=== PATIENT | female | born 1990 | race Caucasian/White ===

== ENCOUNTER 2018-01-28 11:38 | Inpatient (IN) | payer OTHER ==
[2018-01-28] MEDS ORDERED: LACTATED RINGERS 1,000 ML ONE (12:45)
[2018-01-28] MEDS ORDERED: PITOCin/NS 20 UNIT/1000ML DRIP 20,000 MILLIUNITS/1,000 ML BAG IV ONE (12:46)
--- NOTE | 2018-01-28 13:00 | History and Physical Report ---
History of Present Illness Date of examination: 01/28/18 Date of admission: 01/28/18 12:38 Chief complaint: Contractions History of present illness: 28yo G 3 P 2 0 0 2 at 39 weeks 4 days here with c/o painful ctxs since this AM. She reports positive movements but denies vaginal bleeding or LOF. She is a [facility] patient. No records available. She denies any problems related to her . Her past medical history is unremarkable. GBS is unknown. Past History Past Medical History: no pertinent history Past Surgical History: no surgical history Family/Genetic History: none Social history: , lives with family, full code - Obstetrical History Expected Date of Delivery: 01/31/18 Actual Gestation: 39 Week(s) 4 Day(s) : 3 Para: 2 Hx # Term Pregnancies: 0 Number of Pregnancies: 0 Spontaneous Abortions: 0 Induced : 0 Number of Living Children: 2 Medications and Allergies Allergies Allergy/AdvReac Type Severity Reaction Status Date / Time No Known Allergies Allergy Unverified 01/28/18 13:01 Home Medications Medication Instructions Recorded Confirmed Last Taken Type No Known Home Medications [No 01/28/18 01/28/18 Unknown History Reported Home Medications] Review of Systems All systems: negative - Vital Signs Vital signs: Vital Signs Pulse Pulse Ox 96 H 98 01/28/18 12:02 01/28/18 12:02 Temp Pulse Resp BP Pulse Ox 79 115/76 98 01/28/18 12:59 01/28/18 12:59 01/28/18 12:59 - Obstetrical FHR: auscultation normal, category 1 FHR comments: baseline 130, moderate variability, + accels, no decels Uterine Contraction Monitor Mode: External Cervical Dilatation: 8 (per RN) Cervical Effacement Percentage: 90 (per RN) station: 0 (per RN) Uterine Contraction Frequency (min): 2-3 Uterine Contraction Pattern: Regular Results Result Diagrams: 01/28/18 12:35 All other labs normal. Assessment and Plan - Patient Problems (1) 39 weeks gestation of Current Visit: Yes Status: Acute (2) Active labor at term Current Visit: Yes Status: Acute Plan to address problem: Admit to L&D with routine labor orders Start ampicillin for GBS prophylaxis Anticipate imminent vaginal delivery
[2018-01-28] MEDS ORDERED: XYLOCAINE 2% INFILTRATI ONE (13:01)
[2018-01-28] MEDS ORDERED: SUBLIMAZE IV PRN (13:01)
[2018-01-28] MEDS ORDERED: BRETHINE SUB-Q PRN (13:01)
[2018-01-28] MEDS ORDERED: MINERAL OIL PO PRN (13:01)
[2018-01-28] MEDS ORDERED: BRETHINE IVP PRN (13:01)
[2018-01-28 13:25] LABS: Hematocrit 38.5 % (30.3-42.9); Hemoglobin 13.7 gm/dl (10.1-14.3); Mean Corpuscular HGB Conc 36 % (30-34); Mean Corpuscular Hemoglobin 33 pg (28-32); Mean Corpuscular Volume 94 fl (79-97); Platelet Count 232 K/mm3 (140-440); Red Cell Distribution Width 13.1 % (13.2-15.2)
--- NOTE | 2018-01-28 13:46 | Procedure Note ---
OB Delivery Note - Delivery Date of Delivery: 01/28/18 Surgeon: THONY SANCHEZ (JUAN J) Estimated blood loss: 200cc - Vaginal Delivery presentation: vertex Delivery position: OA Intrapartum events: none Delivery induction: none Delivery monitor: none Route of delivery: Delivery placenta: spontaneous (13:38) Delivery cord: 3 umbilical vessels Episiotomy: none Delivery laceration: none Anesthesia: none Delivery comments: of a viable term 6 lbs 13 oz female on 01/28/18 @ 13:32. Baby placed skin-to -skin on maternal abdomen. After 3 mins, umbilical cord double-clamped by JUAN J Sanchez and cut by the patient. Spontanoeus delivery of placenta, Roberta- side presenting at 13:38. Small lochia present. Fundal massage and IV Pitocin bolus initiated. Fundus F/ML/U-1. Perineum intact. No lacerations present. Placenta intact; was discarded. Mom and baby in stable condition. - Infant A at 1 minute: 8 at 5 minutes: 9 Infant Gender: Female (6 lbs 13 oz (3087 gm) 19 in)
[2018-01-28] MEDS ORDERED: LACTATED RINGERS 1,000 ML IV SCH (14:00)
[2018-01-28] MEDS ORDERED: PITOCin/NS 20 UNIT/1000ML DRIP 20 UNITS/1,000 ML BAG IV SCH (14:00)
[2018-01-28] MEDS ORDERED: TYLENOL PO PRN (15:18)
[2018-01-28] MEDS ORDERED: PHENERGAN PO PRN (15:18)
[2018-01-28] MEDS ORDERED: TUCKS PAD TP PRN (15:18)
[2018-01-28] MEDS ORDERED: MILK OF MAGNESIA PO PRN (15:18)
[2018-01-28] MEDS ORDERED: BENADRYL PO PRN (15:18)
[2018-01-28] MEDS ORDERED: ZOFRAN IV PRN (15:18)
[2018-01-28] MEDS ORDERED: PHENERGAN PR PRN (15:18)
[2018-01-28] MEDS ORDERED: DULCOLAX PR PRN (15:18)
[2018-01-28] MEDS ORDERED: LANSINOH TP PRN (15:18)
[2018-01-28] MEDS ORDERED: SODIUM CHLORIDE FLUSH SYRINGE 10 ML IV SCH (16:00)
[2018-01-28] MEDS ORDERED: AMPICILLIN/NS 1 GM/50 ML 1 GM/50 ML BAG IV SCH (17:03)
[2018-01-28] MEDS: MOTRIN PO SCH (17:25)
[2018-01-28] MEDS: NORCO 5/325 PO PRN (17:25)
[2018-01-29 03:46] LABS: Hematocrit 34.9 % (30.3-42.9); Hemoglobin 11.9 gm/dl (10.1-14.3)
[2018-01-29] MEDS: MOTRIN PO SCH ×4 (05:36→18:25)
--- NOTE | 2018-01-29 10:17 | Progress Note ---
Assessment and Plan A: PPD#1 s/p Stable Breast/Bottlefeeding GBS unknown P: Routine PP orders Anticipate discharge 24-48 hrs Subjective - Subjective Date of service: 01/29/18 Principal diagnosis: PPD#1 s/p Interval history: See delivery note Patient reports: appetite normal, voiding normally, pain well controlled, flatus , ambulating normally, no bowel movement : doing well (both breast/bottle) Objective - Vital Signs Latest vital signs: Vital Signs Temp Pulse Resp BP BP Pulse Ox 01/29/18 08:18 97.6 F 67 18 96/61 100 01/29/18 06:36 18 01/29/18 05:36 18 01/29/18 00:45 97.9 F 68 18 105/66 96 01/29/18 00:00 18 01/28/18 20:33 97.8 F 70 18 103/65 93 01/28/18 16:39 97.9 F 62 18 106/61 01/28/18 14:43 61 112/75 01/28/18 14:28 61 111/73 01/28/18 14:13 75 112/71 01/28/18 13:58 89 132/77 01/28/18 13:44 92 H 144/69 01/28/18 13:29 102 H 100 01/28/18 13:28 104 H 127/79 01/28/18 13:24 95 H 100 01/28/18 13:23 95 H 91 01/28/18 13:19 101 H 100 01/28/18 13:14 100 H 100 01/28/18 13:13 82 122/80 90 01/28/18 13:09 97 H 100 01/28/18 13:04 76 81 L 01/28/18 12:59 79 115/76 98 01/28/18 12:54 86 99 01/28/18 12:50 97.7 F 18 01/28/18 12:49 91 H 100 01/28/18 12:44 95 H 99 01/28/18 12:43 87 110/69 01/28/18 12:32 96 H 98 01/28/18 12:27 81 98 01/28/18 12:22 86 98 01/28/18 12:17 94 H 98 01/28/18 12:12 96 H 97 01/28/18 12:07 92 H 99 01/28/18 12:03 74 106/71 01/28/18 12:02 96 H 98 Intake and Output 01/28/18 01/29/18 01/29/18 23:59 07:59 15:59 Intake Total 120 240 Balance 120 240 Intake: Oral 120 120 Intake, Free Water 120 Other: Total, Intake Amount 120 120 # Voids Void 1 1 - Exam Breasts: Present: normal, Cardiovascular: Present: Regular rate, Normal S1, Normal S2, No murmurs Lungs: Present: Clear to auscultation, Normal air movement Abdomen: Present: normal appearance, soft, normal bowel sounds. Absent: distention Vulva: both: normal Uterus: Present: firm, fundal height below umbilicus (-1) Extremities: Present: normal Deep Tendon Reflex Grade: Normal +2 - Labs Labs: Abnormal lab results 01/28/18 Range/Units 12:35 MCH 33 H (28-32) pg MCHC 36 H (30-34) % RDW 13.1 L (13.2-15.2) %
--- NOTE | 2018-01-29 10:18 | Discharge Summary ---
Providers - Providers Date of Admission: 01/28/18 12:38 Date of discharge: 01/30/18 Attending physician: LIZETTE MEIER MD Primary care physician: LIZETTE MEIER MD Hospitalization Reason for admission: active labor, IUP at term Delivery: Procedure details: See delivery note Episiotomy: none Laceration: none Other procedures: none complications: none Discharge diagnosis: IUP at term delivered [place] baby: female Condition at discharge: Good Disposition: DC-01 TO HOME OR SELFCARE Plan - Provider Discharge Summary Activity: routine, no sex for 6 weeks, no heavy lifting 4 weeks, no strenuous exercise Diet: routine Instructions: routine Additional instructions: [] Smoking cessation referral if applicable(refer to patient education folder for contact #) [] Refer to [facility] Booklet Call your doctor immediately for: * Fever > 100.5 * Heavy vaginal bleeding ( >1 pad per hour) * Severe persistent headache * Shortness of breath * Reddened, hot, painful area to leg or breast * Drainage or odor from incision. * Keep incision clean and dry at all times and follow doctor's instructions regarding bathing/showering - Follow up plan Follow up: LIZETTE MEIER MD [Primary Care Provider] - 6 Weeks
[2018-01-29] MEDS: PRENATAL VITAMIN PO SCH (10:49)
[2018-01-29] MEDS: NORCO 5/325 PO PRN (10:51)
[2018-01-30] MEDS: MOTRIN PO SCH ×3 (00:35→11:17)
[2018-01-30] MEDS: PRENATAL VITAMIN PO SCH (11:17)
[2018-01-30 15:25] VITALS: BP 95/58
== END 2018-01-30 14:20 | disposition home or self-care (01) | DRG 775 ==
LOC: TRG 11:38 → LD 12:38 → OB 17:18
PROVIDERS: ADMIT Obstetrics & Gynecology; ATTEND Obstetrics & Gynecology
PROC: 10E0XZZ Delivery of Products of Conception, External Approach (ICD-10-PCS; principal; 2018-01-28)
DX: O80 Encounter for full-term uncomplicated delivery (principal); Z3A.39 39 weeks gestation of pregnancy; Z37.0 Single live birth
CPT/HCPCS: 36415; 85014; 85018; 85027; 86592; 86850; 86900; 86901; 99211; A6250; G0463; J2590; J7120

== ENCOUNTER 2020-11-13 12:05 | Inpatient (IN) | payer MEDICAID, OTHER ==
[2020-11-13] MEDS ORDERED: CARBOPROST TROMETHAMINE 250 MCG/1 ML INJ IM PRN (15:53)
[2020-11-13] MEDS ORDERED: BUTORPHANOL 2 MG/1 ML INJ IV PRN (15:53)
[2020-11-13] MEDS ORDERED: TERBUTALINE 1 MG/1 ML INJ SUB-Q PRN (15:53)
[2020-11-13] MEDS ORDERED: NALOXONE 0.4 MG/1 ML INJ IV PRN (15:53)
[2020-11-13] MEDS ORDERED: fentaNYL 100 MCG/2 ML INJ IV PRN (15:53)
[2020-11-13] MEDS ORDERED: METHYLERGONOVINE MALEATE 0.2 MG/ML VIAL IM PRN (15:53)
[2020-11-13] MEDS ORDERED: ONDANSETRON 4 MG/2 ML INJ IV PRN ×3 (15:53→22:43)
[2020-11-13] MEDS ORDERED: MINERAL OIL 30 ML ORAL LIQD PO PRN (15:53)
[2020-11-13] MEDS ORDERED: ePHEDrine SULFATE 50 MG/1 ML INJ IV PRN (15:53)
[2020-11-13] MEDS ORDERED: OXYTOCIN 10 UNIT/1 ML INJ IM PRN (15:53)
[2020-11-13] MEDS ORDERED: OXYTOCIN DRIP 30 UNITS/500 ML BAG IV SCH ×3 (16:00→22:43)
[2020-11-13] MEDS ORDERED: LACTATED RINGERS 1,000 ML IV SCH (16:00)
--- NOTE | 2020-11-13 16:52 | Ultrasound Report ---
ULTRASOUND OBSTETRIC LIMITED ULTRASOUND BIOPHYSICAL PROFILE INDICATION / CLINICAL INFORMATION: WELL BEING BPP/RO. COMPARISON: None available. FINDINGS: BREATHING MOVEMENT = 2 GROSS BODY MOVEMENT = 2 TONE = 2 QUALITATIVE AMNIOTIC FLUID VOLUME = 2 TOTAL BIOPHYSICAL SCORE = 8/8 HEART RATE (beats per minute): 143 AMNIOTIC FLUID INDEX (cm) = 8.9 (normal = 7-24 cm) PRESENTATION: Cephalic. ADDITIONAL FINDINGS: None. IMPRESSION: 1. Biophysical Score = 8/8 2. RO 8.9 cm Signer Name: Harley Arrieta MD Signed: 11/13/2020 4:48 PM Workstation Name: [id number]
[2020-11-13] MEDS ORDERED: miSOPROStol 25 MCG TAB VG ONE (17:00)
[2020-11-13] MEDS ORDERED: LIDOCAINE (2%) 20 MG/1 ML VIAL 20 ML MDV INFILTRATI ONE (17:00)
[2020-11-13 17:15] LABS: Hematocrit 32.6 % (30.3-42.9); Hemoglobin 11.3 gm/dl (10.1-14.3); Mean Corpuscular HGB Conc 35 % (30-34); Mean Corpuscular Volume 91 fl (79-97); Platelet Count 202 K/mm3 (140-440); Red Blood Count 3.57 M/mm3 (3.65-5.03); Red Cell Distribution Width 13.8 % (13.2-15.2)
--- NOTE | 2020-11-13 19:09 | History and Physical Report ---
History of Present Illness Date of examination: 11/13/20 Chief complaint: pt here with c/o ctx History of present illness: at 38.5 by LMP c/w U/S. Pt c/o ctx, denies leakage of fluid or vaginal bleeding or headache. pt admits to having heavy vaginal bleeding with all her vag deliveries and extensive vaginal laceration with her first 2 children, 7- 8lbs. care at [facility] and records with Rh positive, Hep BsAg neg, RPR neg, HIV neg and Rubella immune and GBS negative. Past History Past Medical History: other (PPH with all her vag deliveries but no blood transfusion needed) Past Surgical History: no surgical history - Obstetrical History Expected Date of Delivery: 11/22/20 Actual Gestation: 38 Week(s) 5 Day(s) : 4 Hx # Term Pregnancies: 3 Number of Living Children: 3 Medications and Allergies Allergies Allergy/AdvReac Type Severity Reaction Status Date / Time No Known Allergies Allergy Unverified 01/28/18 13:01 Home Medications Medication Instructions Recorded Confirmed Last Taken Type No Known Home Medications [No 01/28/18 01/28/18 Unknown History Reported Home Medications] Active Meds: Active Medications Butorphanol Tartrate (Butorphanol 2 Mg/1 Ml Inj) 1 mg IV Q2H PRN PRN Reason: Pain, Moderate(4-6) LABOR PAIN Carboprost Tromethamine (Carboprost Tromethamine 250 Mcg/1 Ml Inj) 250 mcg IM ONCE PRN PRN Reason: Uterine Bleeding Ephedrine Sulfate (Ephedrine Sulfate 50 Mg/1 Ml Inj) 10 mg IV Q2M PRN PRN Reason: Hypotension Fentanyl (Fentanyl 100 Mcg/2 Ml Inj) 100 mcg IV Q2H PRN PRN Reason: Pain,Severe (7-10) LABOR PAIN Oxytocin/Sodium Chloride (Pitocin/Ns 30 Unit/500ml) 30 units in 500 mls @ 2 mls/hr IV TITR JOSE ANTONIO; Protocol Lactated Ringer's (Lactated Ringers) 1,000 mls @ 125 mls/hr IV DIRECT JOSE ANTONIO Oxytocin/Sodium Chloride (Pitocin/Ns 30 Unit/500ml) 30 units in 500 mls @ 40 mls/hr IV TITR JOSE ANTONIO; Protocol Methylergonovine Maleate (Methylergonovine Maleate 0.2 Mg/Ml Vial) 0.2 mg IM ONCE PRN PRN Reason: Uterine Bleeding Mineral Oil (Mineral Oil 30 Ml Oral Liqd) 30 ml PO QHS PRN PRN Reason: Constipation Naloxone HCl (Naloxone 0.4 Mg/1 Ml Inj) 0.1 mg IV Q2MIN PRN PRN Reason: Res Rate </= 8 or 02 SAT < 92% Ondansetron HCl (Ondansetron 4 Mg/2 Ml Inj) 4 mg IV Q8H PRN PRN Reason: Nausea And Vomiting Oxytocin (Oxytocin 10 Unit/1 Ml Inj) 10 unit IM ONCE PRN PRN Reason: Uterine Bleeding Terbutaline Sulfate (Terbutaline 1 Mg/1 Ml Inj) 0.25 mg SUB-Q ONCE PRN PRN Reason: Hyperstimulation/Hypertonicity Review of Systems All systems: negative (ctx) - Vital Signs Vital signs: Vital Signs Pulse Pulse Ox 123 H 98 11/13/20 12:30 11/13/20 12:30 Temp Pulse Resp BP Pulse Ox 98.6 F 106 H 18 104/61 99 11/13/20 18:18 11/13/20 19:03 11/13/20 12:40 11/13/20 17:15 11/13/20 19:03 - Physical Exam Breasts: Positive: normal Cardiovascular: Regular rate Genitourinary (Female): Positive: normal external genitalia Vagina: Positive: normal moisture Extremities: Positive: normal - Obstetrical FHR: category 1 Uterine Contraction Monitor Mode: External Cervical Dilatation: 6 (prev 5cm in triage and then changed to 6cm by triage nurse hence admission. Pelvic now 8cm with moderate blood at vagina. ) Cervical Effacement Percentage: 90 station: -1 Uterine Contraction Pattern: Irregular Uterine Contraction Intensity: Mild Results Result Diagrams: 11/13/20 17:01 Abnormal lab results 11/13/20 Range/Units 17:01 RBC 3.57 L (3.65-5.03) M/mm3 MCHC 35 H (30-34) % All other labs normal. Assessment and Plan multiparous in active labor, now with moderate vag bleeding and BPP earlier 01/23 and cephalic 1. Admit to labor and delivery 2. AROM done and same with copious amount of clear fluid. 3. IUPC and FSE placed 4. Will augment labor with pitocin 5. Pt declines epidural. May have IV pain med when desired Expect
[2020-11-13] MEDS ORDERED: miSOPROStol 200 MCG TAB PR ONE (19:48)
[2020-11-13] MEDS ORDERED: miSOPROStol 200 MCG TAB ONE (19:48)
--- NOTE | 2020-11-13 20:29 | Procedure Note ---
OB Delivery Note - Delivery Date of Delivery: 11/13/20 Surgeon: MART LUGO Estimated blood loss: 300cc - Vaginal Delivery position: OA Intrapartum events: none Delivery induction: none Delivery augmentation: pitocin Delivery monitor: external FHT Route of delivery: Delivery placenta: spontaneous Episiotomy: none Delivery laceration: 1st degree (x2 to vagina) Delivery repair: chromic Anesthesia: local Delivery comments: SAVD uncomplicated of viable female infant, placenta delivered spontaneously and complete. Sustained 2 first degree lacerations and same repaired with 2-0 chromic interrupted suture. Bimanual done and pt given cytotec 1000mcg per rectum as prophylaxis with previous PPH x3 history. Mom and baby stable. - Infant A at 1 minute: 8 at 5 minutes: 9 (2986g)
[2020-11-13] MEDS ORDERED: oxyCODONE /ACETAMINOPHEN 5-325MG TAB PO ONE (20:43)
[2020-11-13] MEDS ORDERED: LANOLIN/ZINC/DIMETHICONE (LANSINOH) 7 GM TP PRN ×2 (22:00→22:43)
[2020-11-13] MEDS ORDERED: MAGNESIUM HYDROXIDE (MOM) ORAL LIQD UDC PO PRN ×2 (22:00→22:43)
[2020-11-13] MEDS ORDERED: PROMETHAZINE 25 MG TAB PO PRN ×2 (22:00→22:43)
[2020-11-13] MEDS ORDERED: PROMETHAZINE 25 MG RECT SUPP PR PRN ×2 (22:00→22:43)
[2020-11-13] MEDS ORDERED: diphenhydrAMINE 25 MG CAP PO PRN ×2 (22:00→22:43)
[2020-11-13] MEDS ORDERED: WITCH HAZEL/ GLYCERIN PAD TP PRN ×2 (22:00→22:43)
[2020-11-13] MEDS ORDERED: IBUPROFEN 600 MG TAB PO SCH (22:43)
[2020-11-13] MEDS: IBUPROFEN 600 MG TAB PO SCH (23:14)
[2020-11-14] MEDS: IBUPROFEN 600 MG TAB PO SCH ×3 (06:12→23:29)
[2020-11-14 09:12] LABS: Hematocrit 33.1 % (30.3-42.9); Hemoglobin 10.8 gm/dl (10.1-14.3)
[2020-11-14] MEDS: oxyCODONE /ACETAMINOPHEN 5-325MG TAB PO PRN ×2 (10:03→17:04)
[2020-11-14] MEDS: PRENATAL VIT27-FE FUMARATE-FOLIC ACID VIT TAB PO SCH (10:03)
[2020-11-14 10:21] LABS: Hematocrit 31.3 % (30.3-42.9); Hemoglobin 10.7 gm/dl (10.1-14.3)
--- NOTE | 2020-11-14 11:45 | Progress Note ---
Assessment and Plan A: day 1 S/P . Anemia. P: Supplement with iron. Continue routine care. Anticipate discharge home tomorrow if patient continues to do well. Subjective - Subjective Date of service: 11/14/20 Principal diagnosis: day 1 S/P Patient reports: appetite normal, voiding normally, pain well controlled, flatus, ambulating normally, no dizzy ambulation, no nauseated : doing well Objective - Vital Signs Latest vital signs: Vital Signs Temp Pulse Resp BP BP Pulse Ox 11/14/20 08:00 98.1 F 77 16 99/63 96 11/14/20 07:10 18 11/14/20 06:12 18 11/14/20 05:04 98.2 F 72 20 101/61 98 11/14/20 00:03 18 11/13/20 23:14 18 11/13/20 22:08 99.7 F H 85 18 112/63 98 11/13/20 20:32 89 110/58 11/13/20 20:18 100 H 95 11/13/20 20:13 98 H 99 11/13/20 20:08 111 H 99 11/13/20 20:03 87 96 11/13/20 19:58 94 H 100 11/13/20 19:53 105 H 98 11/13/20 19:48 104 H 97 11/13/20 19:43 98 H 98 11/13/20 19:38 107 H 97 11/13/20 19:33 96 H 99 11/13/20 19:28 97 H 99 11/13/20 19:23 97 H 97 11/13/20 19:18 92 H 99 11/13/20 19:13 98.5 F 109 H 20 99 11/13/20 19:08 93 H 99 11/13/20 19:03 106 H 99 11/13/20 18:58 101 H 99 11/13/20 18:53 103 H 99 11/13/20 18:48 89 99 11/13/20 18:43 111 H 99 11/13/20 18:38 98 H 99 11/13/20 18:33 102 H 100 11/13/20 18:28 113 H 100 11/13/20 18:23 87 100 11/13/20 18:18 98.6 F 94 H 98 11/13/20 18:13 96 H 99 11/13/20 18:08 100 H 99 11/13/20 18:03 102 H 99 11/13/20 17:58 88 99 11/13/20 17:53 104 H 99 11/13/20 17:48 99 H 100 11/13/20 17:43 105 H 100 11/13/20 17:38 96 H 99 11/13/20 17:33 96 H 99 11/13/20 17:28 107 H 99 11/13/20 17:23 115 H 99 11/13/20 17:18 108 H 99 11/13/20 17:15 100 H 104/61 11/13/20 17:13 105 H 100 11/13/20 17:08 105 H 99 11/13/20 17:03 104 H 99 11/13/20 16:58 106 H 100 11/13/20 16:52 97 H 98 11/13/20 16:47 106 H 98 11/13/20 16:42 110 H 98 11/13/20 16:37 100 H 99 11/13/20 15:44 89 87 11/13/20 15:41 115 H 99 11/13/20 15:36 99 H 100 11/13/20 15:31 98 H 99 11/13/20 15:26 103 H 100 11/13/20 15:21 104 H 100 11/13/20 15:20 100 H 109/68 11/13/20 15:16 101 H 99 11/13/20 15:11 103 H 100 11/13/20 15:06 109 H 100 11/13/20 15:00 108 H 99 11/13/20 14:55 99 H 99 11/13/20 14:50 107 H 101/59 99 11/13/20 14:45 100 H 99 11/13/20 14:40 93 H 99 11/13/20 14:35 98 H 100 05 14:30 98 H 99 11/13/20 14:25 105 H 100 05 14:21 103 H 95/58 11/13/20 14:20 103 H 100 11/13/20 14:15 98 H 100 11/13/20 14:10 98 H 100 11/13/20 14:05 102 H 100 11/13/20 14:00 100 H 99 11/13/20 13:55 99 H 99 11/13/20 13:50 107 H 98/70 99 11/13/20 13:45 101 H 99 11/13/20 13:40 100 H 100 11/13/20 13:35 106 H 98 11/13/20 13:30 105 H 98 11/13/20 13:25 118 H 97 11/13/20 13:20 111 H 95/61 98 11/13/20 13:15 96 H 98 11/13/20 13:10 114 H 97 11/13/20 13:05 113 H 97 11/13/20 13:00 120 H 100 11/13/20 12:55 118 H 97 11/13/20 12:50 112 H 98 11/13/20 12:45 124 H 97 11/13/20 12:40 98.1 F 129 H 18 97 11/13/20 12:35 125 H 97 11/13/20 12:32 120 H 108/76 11/13/20 12:30 123 H 98 Intake and Output 11/13/20 11/14/20 11/14/20 23:59 07:59 15:59 Intake Total 244.133 Output Total 700 Balance -455.867 Intake: IV 4.133 PITOCin/NS 30 UNIT/500ML 4.133 30 units In 500 ml @ 2 mls/hr IV TITR JOSE ANTONIO Rx#: [id number] Oral 240 Output: Urine 700 Void 700 Other: Total, Intake Amount 240 Total, Output Amount 400 # Voids Void 1 Estimated Blood Loss 300 - Exam Cardiovascular: Present: Regular rate Lungs: Present: Clear to auscultation Abdomen: Present: normal appearance, soft. Absent: distention, tenderness, guarding, rigidity Uterus: Present: normal, firm, fundal height below umbilicus. Absent: bogginess, tenderness Extremities: Present: normal. Absent: tenderness, edema - Labs Labs: Abnormal lab results 11/13/20 Range/Units 17:01 RBC 3.57 L (3.65-5.03) M/mm3 MCHC 35 H (30-34) %
[2020-11-14] MEDS: FERROUS SULFATE 325 MG TAB PO SCH (23:29)
[2020-11-15] MEDS: IBUPROFEN 600 MG TAB PO SCH (05:05)
--- NOTE | 2020-11-15 06:42 | Progress Note ---
Assessment and Plan A: day 2 S/P . Anemia. P: Discharge patient home today. Discussed with patient discharge instructions and warning signs. Advised patient to continue to take her vitamin and iron supplement at home. Advised patient to avoid intercourse, lifting, heavy housework, driving. Advised patient to follow up at [facility] office in 6 weeks. Patient voiced understanding of all instructions. Subjective - Subjective Date of service: 11/15/20 Principal diagnosis: day 2 S/P Interval history: Desires discharge home today. Patient reports: appetite normal, voiding normally, pain well controlled, flatus, ambulating normally, no dizzy ambulation, no nauseated [employer]: doing well Objective - Vital Signs Latest vital signs: Vital Signs Temp Pulse Resp BP BP Pulse Ox 11/15/20 00:23 97.9 F 70 18 102/61 98 11/14/20 16:15 98.0 F 69 18 100/62 98 11/14/20 08:00 98.1 F 77 16 99/63 96 11/14/20 07:10 18 Intake and Output 11/14/20 11/14/20 11/15/20 15:59 23:59 07:59 Intake Total 120 Balance 120 Intake: Oral 120 Other: Total, Intake Amount 120 # Voids Void 1 - Exam Cardiovascular: Present: Regular rate Lungs: Present: Clear to auscultation Abdomen: Present: normal appearance, soft. Absent: distention, tenderness, guarding, rigidity Uterus: Present: normal, firm, fundal height below umbilicus. Absent: bogginess, tenderness Extremities: Present: normal. Absent: tenderness, edema
--- NOTE | 2020-11-15 06:46 | Discharge Summary ---
Providers - Providers Date of Admission: 11/13/20 12:24 Date of discharge: 11/15/20 Attending physician: MART LUGO Primary care physician: MART LUGO Hospitalization Reason for admission: active labor Delivery: Laceration: 1st degree Other procedures: none complications: none Discharge diagnosis: IUP at term delivered baby: female Pertinent studies: Labs Hospital course: Stable hospital course. Condition at discharge: Good Disposition: DC-01 TO HOME OR SELFCARE Plan - Provider Discharge Summary Activity: routine, no sex for 6 weeks, no heavy lifting 4 weeks, no strenuous exercise Diet: routine Instructions: routine Additional instructions: Continue taking your vitamin and iron supplements at home. Follow up at [facility] in 6 weeks. Call your doctor immediately for: * Fever > 100.5 * Heavy vaginal bleeding ( >1 pad per hour) * Severe persistent headache * Shortness of breath * Reddened, hot, painful area to leg or breast - Follow up plan Follow up: MART LUGO MD [Primary Care Provider] - 6 Weeks
[2020-11-15] MEDS: oxyCODONE /ACETAMINOPHEN 5-325MG TAB PO PRN (10:57)
[2020-11-15] MEDS: FERROUS SULFATE 325 MG TAB PO SCH (10:57)
[2020-11-15] MEDS: PRENATAL VIT27-FE FUMARATE-FOLIC ACID VIT TAB PO SCH (10:58)
[2020-11-15 14:45] VITALS: BP 101/68
== END 2020-11-15 13:29 | disposition home or self-care (01) | DRG 807 ==
LOC: TRG 12:05 → APU 12:06 → TRG 12:24 → LD 12:24 → OB 22:41
PROVIDERS: ADMIT Obstetrics & Gynecology; ATTEND Obstetrics & Gynecology
PROC: 10E0XZZ Delivery of Products of Conception, External Approach (ICD-10-PCS; principal; 2020-11-13)
PROC: 10907ZC Drainage of Amniotic Fluid, Therapeutic from Products of Conception, Via Natural or Artificial Opening (ICD-10-PCS; 2020-11-13)
PROC: 10H07YZ Insertion of Other Device into Products of Conception, Via Natural or Artificial Opening (ICD-10-PCS; 2020-11-13)
PROC: 0HQ9XZZ Repair Perineum Skin, External Approach (ICD-10-PCS; 2020-11-13)
DX: O70.0 First degree perineal laceration during delivery (principal); Z37.0 Single live birth; Z3A.38 38 weeks gestation of pregnancy; Z20.822 Contact with and (suspected) exposure to COVID-19
CPT/HCPCS: 36415; 59025; 76815; 76819; 85014; 85018; 85027; 86592; 86850; 86900; 86901; G0378; J2590; J3010; U0003